=== PATIENT | female | born 1985 ===

== ENCOUNTER 2024-03-07 00:47 | Outpatient (CLI) ==
[~2024-03-07] VITALS: Ht 160 cm; Wt 85.3 kg
[2024-03-07] MEDS ORDERED: ACET325C5 PO (01:17)
[2024-03-07] MEDS ORDERED: ALLE60TA69 PO (01:17)
[2024-03-07] MEDS ORDERED: ECOT81TA5 PO (01:17)
[2024-03-07] MEDS ORDERED: NOXI1TAB PO (01:17)
[2024-03-07] MEDS ORDERED: PRENTAB9 PO (01:17)
[2024-03-07] MEDS ORDERED: HOME MED LIST COMPLETE! XX SCH (01:20)
[2024-03-07 01:21] VITALS: BP 124/86; O2SAT 100
[2024-03-07 02:43] VITALS: BP 116/73
== END 2024-03-07 02:46 | disposition home or self-care (01) ==
LOC: M LDO 00:47
PROVIDERS: ATTEND Advanced Practice Midwife
DX: O36.8130 Decreased fetal movements, third trimester, not applicable or unspecified (principal); O32.2XX9 Maternal care for transverse and oblique lie, other fetus; O09.293 Supervision of pregnancy with other poor reproductive or obstetric history, third trimester; O09.523 Supervision of elderly multigravida, third trimester; O34.219 Maternal care for unspecified type scar from previous cesarean delivery; Z3A.34 34 weeks gestation of pregnancy
CPT/HCPCS: 59025; 76815; 76819; 76820; G0463

== ENCOUNTER → 2025-01-26 | Outpatient (CLI) | payer OTHER ==
[~2025-01-26] MED LIST: ACET325C5 PO; ALLE60TA69 PO; ECOT81TA5 PO; NOXI1TAB PO; PRENTAB9 PO
== END ==
LOC: M WUC 14:52
PROVIDERS: ATTEND Registered Nurse
DX: M25.551 Pain in right hip (principal)